=== PATIENT | male | born 1970 | race African-American/Black ===

== ENCOUNTER 2020-07-22 19:02 | Emergency (ER) | payer SELFPAY ==
[~2020-07-22] VITALS: Ht 182.9 cm; Wt 98.9 kg
[2020-07-22 19:33] VITALS: Ht 182.9 cm; Wt 98.9 kg
[2020-07-22 21:14] LABS: RED CELL DISTRIBUTION WIDTH 12.3 % (11.5-14.5)
[2020-07-22 21:19] LABS: PLATELET COUNT 405 x10^3mcL (130-400)
[2020-07-22 21:20] LABS: BASOPHIL % 2.1 % (0-2)
[2020-07-22 21:25] LABS: CALCIUM 8.9 mg/dL (8.5-10.1); CARBON DIOXIDE 29.5 mmol/L (21-32); CHLORIDE SERUM 106 mmol/L (98-107); CREATININE SERUM 0.9 mg/dL (0.7-1.3); GFR1 > 60 mL/min; GLUCOSE SERUM 89 mg/dL (74-106); POTASSIUM SERUM 4.4 mmol/L (3.5-5.1); SODIUM SERUM 140 mmol/L (136-145)
[2020-07-22 21:30] LABS: ALKALINE PHOSPHATASE 71 U/L (46-116); ALT/SGPT 26 U/L (16-63); AST/SGOT 16 U/L (15-37); BILIRUBIN TOTAL 0.8 mg/dL (0.20-1.00); LIPASE 267 IU/L (73-393); TOTAL PROTEIN, SERUM 7.9 g/dL (6.4-8.2)
[2020-07-22 21:34] LABS: ALBUMIN 3.3 g/dL (3.4-5.0)
[2020-07-22 23:58] VITALS: BP 135/84
== END 2020-07-22 23:54 | disposition home or self-care (01) ==
LOC: ED 19:02
PROVIDERS: Emergency Medicine
DX: K85.90 Acute pancreatitis without necrosis or infection, unspecified (principal)